=== PATIENT | male | born 1985 | race Caucasian/White ===

== ENCOUNTER 2020-11-28 12:14 | Emergency (ER) | payer BC, SELFPAY ==
--- OUTSIDE RECORDS SUMMARY | 2020-11-28 12:17 | XMS REPORT | Continuity of Care Document ---
:1985 Author Organization [facility] t Address [address] Morin [address] [place] [id number] Care Team Providers Name Role Phone Unavailable Unavailable Unavailable Problems This patient has no known problems. Allergies, Adverse Reactions, Alerts This patient has no known allergies or adverse reactions. Medications This patient has no known medications. Procedures This patient has no known procedures. Results This patient has no known results.
--- NOTE | 2020-11-28 13:33 | RAD REPORT ---
EXAM DESCRIPTION: CT - CTHCSPWOC - 11/28/2020 1:19 pm CLINICAL HISTORY: PAIN, COVID positive, recent fall with head and neck injury, headache COMPARISON: No comparisons TECHNIQUE: Axial 5 mm thick images of the head were obtained. Axial 2 mm thick images of the cervic al spine were obtained with sagittal and coronal reconstruction images generated and reviewed. All CT scans are performed using dose optimization technique as appropriate and may include automated exposure control or mA/KV adjustment according to patient size. FINDINGS: No intracranial hemorrhage, mass, edema or acute intracranial finding. No suspicion for ac [place] infarction. No extra-axial fluid collections. Mastoid air cells are clear. Mucosal thickening see n throughout the paranasal sinuses with small air-fluid level in the left maxillary sinus. Frontal si nuses are not pneumatized. No globe or orbit abnormality seen. Cervical body height and alignment are normal. Minimal disc space narrowing and posterior endplate sp urring changes are present at C5-6. No fracture or acute bony abnormality. Central canal detail is i nherently limited. No paraspinal mass or hematoma. IMPRESSION: Negative CT head examination for acute or significant finding. Patient has mucosal thickening throughout the paranasal sinuses with left maxillary sinus air-fluid l evel. Negative CT cervical spine examination for acute or significant finding. Patient does have early degenerative disc disease at C5-6.
[2020-11-28 14:11] LABS: Absolute Lymphocytes (CBC) 0.5 K/uL (0.7-4.9); Basophils % 0.2 % (0-1.3); Lymphocytes % 14.4 % (15.3-44.8); MPV 7.3 fL (7.6-11.3)
[2020-11-28 14:13] LABS: Protime INR 1.08
[2020-11-28 14:36] LABS: ALT/SGPT 29 U/L (12-78); AST/SGOT 26 U/L (15-37); Albumin 3.7 g/dL (3.4-5.0); Alkaline Phosphatase 45 U/L (45-117); BUN Blood Urea Nitrogen 11 mg/dL (7-18); Bicarbonate 30 mmol/L (21-32); Bilirubin Direct 0.2 mg/dL (0-0.2); Bilirubin Total 0.8 mg/dL (0.2-1.0); Creatine Phosphokinase 145 U/L (39-308); Glucose Level 112 mg/dL (74-106); Lipase 39 U/L (73-393); Magnesium 2.2 mg/dL (1.8-2.4); Potassium 4.3 mmol/L (3.5-5.1); Protein, Total 7.3 g/dL (6.4-8.2); Sodium Level 135 mmol/L (136-145); Troponin (Emerg Dept Use Only) < 0.02 ng/mL (0.0-0.045)
[2020-11-28 14:39] LABS: Urine Blood Negative (Negative); Urine Glucose Negative (Negative); Urine Protein 1+ (Negative); Urine Specific Gravity 1.025 (1.005-1.030)
[2020-11-28 14:40] LABS: CKMB Creatine Kinase MB < 1.0 ng/mL (1.0-3.6)
[2020-11-28] MEDS ORDERED: METOCLOPRAMIDE 10 MG/2mL INJ ONE (14:46)
[2020-11-28] MEDS ORDERED: NA CHLORIDE 0.9% 1,000 ML ONE (14:46)
[2020-11-28] MEDS ORDERED: DIPHENHYDRAMINE 50 MG/ML VIAL ONE (14:46)
[2020-11-28] MEDS ORDERED: KETOROLAC 30 MG/ML INJ ONE (14:46)
--- NOTE | 2020-11-28 15:45 | ER ---
Nurse's Notes [facility] Name: Juan Juarez Age: 35 yrs Sex: Male : 1985 Arrival Date: 11/28/2020 Time: 12:15 Bed Treatment Private MD: Diagnosis: Nausea with vomiting, unspecified;Coronavirus infection, unspecified Presentation: 11/28 12:56 Chief complaint: Patient states: Positive covid Friday. [place] dizzy yesterday, fell ll1 and hit head on shower wall. SCALES, near syncope feeling, N/V since fall. Coronavirus screen: Vaccine status: Patient reports receiving the 1st dose of the Covid vaccine. Client denies travel out of the [place] in the last 14 days. congestion, cough unrelated to allergies. Ebola Screen: Patient denies travel to an Ebola-affected area in the 21 days before illness onset. Initial Sepsis Screen: Does the patient meet any 2 criteria? No. Patient's initial sepsis screen is negative. Does the patient have a suspected source of infection? Yes: Productive cough/pneumonia Other: head injury. Risk Assessment: Do you want to hurt yourself or someone else? Patient reports no desire to harm self or others. Onset of symptoms was November 22, 2020. 12:56 Method Of Arrival: Wheelchair ll1 12:56 Acuity: RAF 2 ll1 Historical: - Allergies: 12:59 topical skin med; ll1 - PMHx: 12:59 None; ll1 - PSHx: 12:59 None; ll1 - Immunization history:: Client reports receiving the 1st dose of the Covid vaccine. - Social history:: Smoking status: Patient denies any tobacco usage or history of. Screenin:44 Abuse screen: Denies threats or abuse. Nutritional screening: No deficits noted. vg1 Tuberculosis screening: No symptoms or risk factors identified. Fall Risk Fall in past 12 months (25 points). No secondary diagnosis (0 pts). IV access (20 points). Ambulatory Aid- None/Bed Rest/Nurse Assist (0 pts). Gait- Normal/Bed Rest/Wheelchair (0 pts) Mental Status- Oriented to own ability (0 pts). Total Chao Fall Scale indicates High Risk Score (45 or more points). Fall prevention measures have been instituted. Side Rails Up X 2 Placed Close to Nursing Station. Assessment: 13:05 General: Appears in no apparent distress. comfortable, Behavior is calm, cooperative. vg1 Pain: Complains of pain in body Quality of pain is described as aching. Neuro: Level of Consciousness is awake, alert, obeys commands, Oriented to person, place, time, situation, Reports dizziness, headache a syncopal episode that occurred yesterday and states hit head on bathroom tub. Cardiovascular: Patient's skin is warm and dry. Respiratory: Reports cough that is dry, Airway is patent Respiratory effort is even, unlabored, Breath sounds are clear bilaterally. GI: Abdomen is round non-distended, Reports nausea, vomiting. : No signs and/or symptoms were reported regarding the genitourinary system. EENT: No signs and/or symptoms were reported regarding the EENT system. Derm: Skin is intact, is healthy with good turgor. Musculoskeletal: Circulation, motion, and sensation intact. 14:48 Reassessment: Patient appears in no apparent distress at this time. Patient and/or vg1 family updated on plan of care and expected duration. Pain level reassessed. Pt resting with eyes closed. 15:36 Reassessment: Patient appears in no apparent distress at this time. Patient and/or vg1 family updated on plan of care and expected duration. Pain level reassessed. Patient is alert, oriented x 3, equal unlabored respirations, skin warm/dry/pink. Patient denies pain at this time. Patient states feeling better. 16:21 Reassessment: Patient appears in no apparent distress at this time. Patient and/or vg1 family updated on plan of care and expected duration. Pain level reassessed. Patient is alert, oriented x 3, equal unlabored respirations, skin warm/dry/pink. Patient denies pain at this time. Patient states feeling better. Vital Signs: 12:56 BP 106 / 63; Pulse 66; Resp 18; Temp 97.8; Pulse Ox 96% ; Weight 124.74 kg; Height 6 ll1 ft. 2 in. (187.96 cm); Pain 10/10; 13:30 BP 113 / 63; Pulse 58; Resp 16; Pulse Ox 97% ; vg1 13:48 BP 110 / 63 Supine; Pulse 57; vg1 13:50 BP 110 / 64 Sitting; Pulse 64; vg1 13:52 BP 111 / 72 Standing; Pulse 80; vg1 14:49 BP 103 / 60 Supine; Pulse 57; Resp 16; Pulse Ox 95% on R/A; vg1 15:36 BP 101 / 64 Supine; Pulse 58; Resp 16; Pulse Ox 97% on R/A; vg1 12:56 Body Mass Index 35.31 (124.74 kg, 187.96 cm) ll1 ED Course: 12:15 Patient arrived in ED. ds1 12:59 Triage completed. ll1 12:59 Arm band placed on. ll1 13:04 [facility] kb 13:04 Eric Berry MD is Attending Physician. kb 13:04 Lilia Paredes, NATANAEL is Primary Nurse. vg1 13:20 CT Head C Spine In Process Unspecified. EDMS 13:43 Initial lab(s) drawn, by me, sent to lab. Inserted saline lock: 20 gauge in left vg1 antecubital area, using aseptic technique. Blood collected. 13:44 Patient has correct armband on for positive identification. Bed in low position. Call vg1 light in reach. Side rails up X2. 16:21 No provider procedures requiring assistance completed. IV discontinued, intact, vg1 bleeding controlled, No redness/swelling at site. Pressure dressing applied. Administered Medications: 14:20 Drug: NS 0.9% 1000 ml Route: IV; Rate: 1000 ml; Site: left antecubital; vg1 15:35 Follow up: IV Status: Completed infusion; IV Intake: 1000ml vg1 14:21 Drug: Ketorolac 15 mg Route: IVP; Site: left antecubital; vg1 15:35 Follow up: Response: No adverse reaction; Marked relief of symptoms vg1 14:23 Drug: Benadryl (diphenhydrAMINE) 12.5 mg Route: IVP; Site: left antecubital; vg1 15:35 Follow up: Response: No adverse reaction; Marked relief of symptoms vg1 14:28 Drug: Reglan (metoCLOPramide) 10 mg Route: IVP; Site: left antecubital; vg1 15:35 Follow up: Response: No adverse reaction; Marked relief of symptoms vg1 Intake: 15:35 IV: 1000ml; Total: 1000ml. vg1 Outcome: 15:44 Discharge ordered by . kb 16:21 Discharged to home ambulatory. vg1 16:21 Condition: stable 16:21 Discharge instructions given to patient, Instructed on discharge instructions, follow up and referral plans. medication usage, Demonstrated understanding of instructions, follow-up care, medications, Prescriptions given X 1. 16:21 Patient left the ED. vg1 Signatures: Dispatcher [employer] EDMS Isis Rodgers, RICHMOND-C TELEMARKETER-Jesica Garvey ds1 Lilia Paredes RN RN vg1 Rony Murillo RN RN ll1
--- NOTE | 2020-11-28 15:45 | EDPHYS ---
Physician Documentation [facility] Name: Juan Juarez Age: 35 yrs Sex: Male : 1985 Arrival Date: 11/28/2020 Time: 12:15 Bed Treatment Private MD: ED Physician Eric Berry HPI: 11/28 15:23 This 35 yrs old Male presents to ER via Wheelchair with complaints of kb Nausea/Vomiting - Covid +, Dizziness. 15:23 The patient presents to the emergency department with nausea, vomiting. Onset: The kb symptoms/episode began/occurred today. Possible causes: covid. The symptoms are aggravated by nothing. The symptoms are alleviated by nothing. Associated signs and symptoms: Pertinent positives: nausea, vomiting. Severity of symptoms: At their worst the symptoms were moderate in the emergency department the symptoms are unchanged. The patient has not experienced similar symptoms in the past. The patient has not recently seen a physician. Pt reports he was diagnosed with covid on Friday. States he started feeling better and was moving around more over the weekend. Yesterday he was in the shower and got lightheaded, fell forward and hit his head on the shower wall. Did not fall completely, denies loc. States he had a slight headache afterwards. Today he started having nausea, vomiting, dizziness and headache. . Historical: - Allergies: 12:59 topical skin med; ll1 - PMHx: 12:59 None; ll1 - PSHx: 12:59 None; ll1 - Immunization history:: Client reports receiving the 1st dose of the Covid vaccine. - Social history:: Smoking status: Patient denies any tobacco usage or history of. ROS: 15:22 Constitutional: Negative for fever, chills, and weight loss. kb 15:22 Abdomen/GI: Positive for nausea and vomiting, Negative for abdominal pain. 15:22 Neuro: Positive for dizziness, headache, near syncope. 15:22 All other systems are negative. Exam: 15:21 Constitutional: This is a well developed, well nourished patient who is awake, alert, kb and in no acute distress. Head/Face: Normocephalic, atraumatic. ENT: Moist Mucous membranes Cardiovascular: Regular rate and rhythm with a normal S1 and S2. No gallops, murmurs, or rubs. No pulse deficits. Respiratory: Respirations even and unlabored. No increased work of breathing, no retractions or nasal flaring. Skin: Warm, dry with normal turgor. Normal color. MS/ Extremity: Pulses equal, no cyanosis. Neurovascular intact. Full, normal range of motion. Neuro: Awake and alert, GCS 15, oriented to person, place, time, and situation. Moves all extremities. Normal gait. Psych: Awake, alert, with orientation to person, place and time. Behavior, mood, and affect are within normal limits. 15:21 ECG was reviewed by the Attending Physician. Vital Signs: 12:56 BP 106 / 63; Pulse 66; Resp 18; Temp 97.8; Pulse Ox 96% ; Weight 124.74 kg; Height 6 ll1 ft. 2 in. (187.96 cm); Pain 10/10; 13:30 BP 113 / 63; Pulse 58; Resp 16; Pulse Ox 97% ; vg1 13:48 BP 110 / 63 Supine; Pulse 57; vg1 13:50 BP 110 / 64 Sitting; Pulse 64; vg1 13:52 BP 111 / 72 Standing; Pulse 80; vg1 14:49 BP 103 / 60 Supine; Pulse 57; Resp 16; Pulse Ox 95% on R/A; vg1 15:36 BP 101 / 64 Supine; Pulse 58; Resp 16; Pulse Ox 97% on R/A; vg1 12:56 Body Mass Index 35.31 (124.74 kg, 187.96 cm) ll1 MDM: 13:04 Patient medically screened. kb 15:21 Data reviewed: vital signs, nurses notes. Data interpreted: Pulse oximetry: on room air kb is 95 %. Interpretation: normal. Counseling: I had a detailed discussion with the patient and/or guardian regarding: the historical points, exam findings, and any diagnostic results supporting the discharge/admit diagnosis, lab results, radiology results, the need for outpatient follow up, a family practitioner, to return to the emergency department if symptoms worsen or persist or if there are any questions or concerns that arise at home. Response to treatment: the patient's symptoms have markedly improved after treatment. 11/28 13:09 Order name: Basic Metabolic Panel; Complete Time: 14:43 kb 11/28 13:09 Order name: CBC with Diff; Complete Time: 14:14 kb 11/28 13:09 Order name: CPK; Complete Time: 14:43 kb 11/28 13:09 Order name: Ckmb; Complete Time: 14:43 kb 11/28 13:09 Order name: Hepatic Function; Complete Time: 14:43 kb 11/28 13:09 Order name: Lipase; Complete Time: 14:43 kb 11/28 13:04 Order name: CT Head C Spine; Complete Time: 13:43 kb 11/28 13:09 Order name: Magnesium; Complete Time: 14:43 kb 11/28 13:09 Order name: Protime (+inr); Complete Time: 14:14 kb 11/28 13:09 Order name: Ptt, Activated; Complete Time: 14:14 kb 11/28 13:09 Order name: Troponin (emerg Dept Use Only); Complete Time: 14:43 kb 11/28 14:39 Order name: Urine Dipstick-Ancillary; Complete Time: 14:43 EDMS 11/28 13:09 Order name: EKG; Complete Time: 13:10 kb 11/28 13:09 Order name: Cardiac monitoring; Complete Time: 13:41 kb 11/28 13:09 Order name: EKG - Nurse/Tech; Complete Time: 13:41 kb 11/28 13:09 Order name: IV Saline Lock; Complete Time: 13:41 kb 11/28 13:09 Order name: Labs collected and sent; Complete Time: 13:41 kb 11/28 13:09 Order name: NPO; Complete Time: 13:14 kb 11/28 13:09 Order name: O2 Per Protocol; Complete Time: 13:14 kb 11/28 13:09 Order name: O2 Sat Monitoring; Complete Time: 13:14 kb 11/28 13:09 Order name: Urine Dipstick-Ancillary (obtain specimen); Complete Time: 14:48 kb 11/28 13:09 Order name: Orthostatics; Complete Time: 13:55 kb 11/28 15:20 Order name: Misc. Order: ambulate pt; Complete Time: 16:21 kb EC:21 Rate is 57 beats/min. Rhythm is regular. QRS [place] is Normal. HI interval is normal at kb 172 msec. QRS interval is normal at 88 msec. QT interval is normal at 434 msec. Administered Medications: 14:20 Drug: NS 0.9% 1000 ml Route: IV; Rate: 1000 ml; Site: left antecubital; vg1 15:35 Follow up: IV Status: Completed infusion; IV Intake: 1000ml vg1 14:21 Drug: Ketorolac 15 mg Route: IVP; Site: left antecubital; vg1 15:35 Follow up: Response: No adverse reaction; Marked relief of symptoms vg1 14:23 Drug: Benadryl (diphenhydrAMINE) 12.5 mg Route: IVP; Site: left antecubital; vg1 15:35 Follow up: Response: No adverse reaction; Marked relief of symptoms vg1 14:28 Drug: Reglan (metoCLOPramide) 10 mg Route: IVP; Site: left antecubital; vg1 15:35 Follow up: Response: No adverse reaction; Marked relief of symptoms vg1 Disposition: 11/29 08:14 Co-signature as Attending Physician, Eric Berry MD I agree with the assessment and courtney plan of care. Disposition Summary: 11/28/20 15:44 Discharge Ordered Location: Home kb Condition: Stable kb Diagnosis - Nausea with vomiting, unspecified kb - Coronavirus infection, unspecified kb Followup: kb - With: Emergency Department - When: As needed - Reason: Worsening of condition Followup: kb - With: Private Physician - When: 2 - 3 days - Reason: Recheck today's complaints, Continuance of care, Re-evaluation by your physician Discharge Instructions: - Discharge Summary Sheet kb - Nausea and Vomiting, Adult, [id number] kb - COVID-19 kb - COVID-19 Frequently Asked Questions kb - 10 Things You Can Do to Manage Your COVID-19 Symptoms at Home - [facility] kb Forms: - Medication Reconciliation Form kb - Thank You Letter kb - Antibiotic Education kb - Prescription Opioid Use kb Prescriptions: - Zofran 4 mg Oral Tablet - take 1 tablet by ORAL route every 6 hours As needed; 20 tablet; Refills: 0, kb Product Selection Permitted Signatures: Dispatcher [employer] Isis Merino, RICHMOND-Miguel FRAGOSO-Eric Bravo MD MD cha Garcia, Victoria, RN RN vg1 Rony Murillo RN RN ll1
[2020-11-28 16:34] VITALS: TEMP 97.8
[2020-11-28 16:42] VITALS: BP 101/64; O2SAT 97
--- NOTE | 2020-11-29 11:29 | EKG ---
Test Date: 2020-11-28 Test Time: 13:31:06 Mattress Stuffer: MIR MEASUREMENT RESULTS: Intervals: Rate: 57 CA: 172 QRSD: 88 QT: 434 QTc: 422 [place]: P: 62 CA: 172 QRS: 61 T: 37 INTERPRETIVE STATEMENTS: Sinus bradycardia Otherwise normal ECG Compared to ECG 07/21/2012 17:34:32 Sinus tachycardia no longer present Electronically Signed On 11-29-20 11:26:51 CDT by Abner Servin
== END 2020-11-28 16:21 | disposition home or self-care (01) ==
LOC: ER 12:14
DX: U07.1 COVID-19 (principal)
CPT/HCPCS: 96361; 93005; 85025; 80048; 36415; 83735; 82550; 85610; 80076; 85730; 81003; 84484; 82553; 83690; 70450; 72125; 96375; 96374; 99284; J2765; J1200; J7030

== ENCOUNTER 2020-11-30 07:21 | Emergency (ER) | payer BC ==
--- OUTSIDE RECORDS SUMMARY | 2020-11-30 07:23 | XMS REPORT | Continuity of Care Document ---
:1985 Author Organization [facility] t Address [address] [place] [address] Dr. Morin [address] [place] [id number] Care Team Providers Name Role Phone Unavailable Unavailable Unavailable Problems This patient has no known problems. Allergies, Adverse Reactions, Alerts This patient has no known allergies or adverse reactions. Medications This patient has no known medications. Procedures This patient has no known procedures. Results This patient has no known results.
[2020-11-30 08:04] LABS: Absolute Lymphocytes (CBC) 0.3 K/uL (0.7-4.9); Basophils % 0.3 % (0-1.3); Hematocrit 40.5 % (39.6-49.0); Lymphocytes % 4.9 % (15.3-44.8); MPV 7.4 fL (7.6-11.3); RBC Red Blood Cell Count 4.72 M/uL (4.33-5.43)
[2020-11-30 08:21] LABS: BUN Blood Urea Nitrogen 7 mg/dL (7-18); Bicarbonate 25 mmol/L (21-32); Ferritin 475.3 ng/mL (26-388); Glucose Level 134 mg/dL (74-106); Potassium 3.9 mmol/L (3.5-5.1); Sodium Level 131 mmol/L (136-145)
[2020-11-30] MEDS ORDERED: NA CHLORIDE 0.9% 1,000 ML ONE (08:31)
[2020-11-30] MEDS ORDERED: ONDANSETRON 4 MG/2 ML VIAL ONE (08:31)
--- NOTE | 2020-11-30 08:40 | RAD REPORT ---
EXAM DESCRIPTION: RAD - Chest Single View - 11/30/2020 8:20 am CLINICAL HISTORY: Cough;Dyspnea, history of COVID exposure COMPARISON: June 2012 TECHNIQUE: AP portable chest image was obtained 11/30/2020 8:20 am . FINDINGS: Lung volumes are very low. Bilateral airspace opacification is present. Given the provided history, bilateral COVID-19 pneumonia would be the primary consideration. Trachea is midline. Heart and vasculature are normal. No measurable pleural effusion and no pneumothorax. No acute bony abnormality seen. No acute aortic findings suspected. IMPRESSION: Bilateral pneumonia pattern. Given the provided history, COVID-19 pneumonia would be the primary consideration.
[2020-11-30 09:24] LABS: Blood Morphology Comment NOT SEEN (NOT SEEN); Platelet Estimate ADEQ
[2020-11-30 09:30] LABS: Albumin 3.5 g/dL (3.4-5.0); Bilirubin Direct 0.3 mg/dL (0-0.2); Bilirubin Total 0.8 mg/dL (0.2-1.0); Protein, Total 7.4 g/dL (6.4-8.2)
--- NOTE | 2020-11-30 09:43 | RAD REPORT ---
EXAM DESCRIPTION: CT - Chest For Pe Angio - 11/30/2020 9:18 am CLINICAL HISTORY: DYSPNEA, shortness of breath, positive COVID COMPARISON: CTANGIO CHEST FOR PE dated 07/21/2012 TECHNIQUE: Dynamically enhanced 3 mm thick images of the chest were obtained during administration o f approximately 150mL Isovue 370 IV contrast. Coronal and oblique MIP reconstruction images were gene rated and reviewed. Exam utilizes a protocol to evaluate the pulmonary arterial tree. All CT scans are performed using dose optimization technique as appropriate and may include automated exposure control or mA/KV adjustment according to patient size. FINDINGS: Pulmonary artery contrast density is not optimal but is sufficient for evaluation of pulmo nary embolic disease. There are no pulmonary emboli identifiable. The aorta as imaged shows no acute or suspicious finding. No pericardial thickening or effusion. Patient has moderately extensive bilateral airspace consolidation and ground-glass opacification. No mass or cavitation identified. This is a very commonly described COVID-19 pneumonia pattern. No pleur al effusion or pleural thickening. No mediastinal or hilar suspicious masses. No chest wall masses or abnormal axillary lymphadenopathy. IMPRESSION: No pulmonary emboli identified. Moderate severity bilateral COVID-19 pneumonia pattern.
--- NOTE | 2020-11-30 09:44 | RAD REPORT ---
EXAM DESCRIPTION: CT - Abdomen Pelvis W Contrast - 11/30/2020 9:18 am CLINICAL HISTORY: ABD PAIN COMPARISON: CT ABD PELVIS W CONTRAST dated 07/21/2012 TECHNIQUE: Biphasic, helical CT imaging of the abdomen and pelvis was performed following 100 ml non -ionic IV contrast. No oral contrast administered. All CT scans are performed using dose optimization technique as appropriate and may include automated exposure control or mA/KV adjustment according to patient size. FINDINGS: Lung findings are detailed in separate CT PE study. The liver, spleen, and pancreas show no suspicious findings. Gallbladder and biliary tree are also wi thout suspicious finding. Symmetric renal function is seen with no hydronephrosis or suspicious renal mass. No pyelonephritis o r acute parenchymal process. No bladder abnormalities. No adrenal abnormalities. No dilated bowel loops or bowel wall thickening. Appendix is normal. No free air, free fluid or infla mmatory stranding. No hernia, mass or bulky lymphadenopathy. No suspicious bony findings. IMPRESSION: Contrast enhanced CT abdomen and pelvis showing no acute or emergent finding.
--- NOTE | 2020-11-30 11:46 | EDPHYS ---
Physician Documentation [facility] Name: Juan Juarez Age: 35 yrs Sex: Male : 1985 Arrival Date: 11/30/2020 Time: 07:21 Bed 15 Private MD: Nas Young S ED Physician Marques Davalos HPI: 11/30 08:25 This 35 yrs old Male presents to ER via Ambulatory with complaints of kb Breathing Difficulty, Cough. 08:25 The patient or guardian reports cough, that is intermittent, described as moderate, kb difficulty breathing. Onset: The symptoms/episode began/occurred 8 day(s) ago. Severity of symptoms: At their worst the symptoms were moderate, in the emergency department the symptoms are unchanged. Modifying factors: The symptoms are alleviated by nothing, the symptoms are aggravated by nothing. Associated signs and symptoms: Pertinent positives: diarrhea, nausea, vomiting. The patient has not experienced similar symptoms in the past. The patient has not recently seen a physician. Pt reports cough, shortness of breath, malaise, n/v/d. States it started a week ago and tested positive for COVID then. This morning had a coughing fit that caused shortness of breath, then he panicked which made shortness of breath worse. States he doesn't feel like he can take a full breath. Historical: - Allergies: 07:27 No Known Allergies; tw2 - Home Meds: 07:27 None [Active]; tw2 - PMHx: 07:27 None; tw2 - PSHx: 07:27 None; tw2 - Immunization history:: Adult Immunizations. - Social history:: Smoking status: . ROS: 08:23 Cardiovascular: Negative for chest pain, palpitations, and edema. kb 08:23 Constitutional: Positive for body aches, chills, fatigue, fever, malaise. 08:23 ENT: Positive for rhinorrhea, sinus congestion. 08:23 Respiratory: Positive for cough, shortness of breath, Negative for dyspnea on exertion, hemoptysis, orthopnea, pleurisy, sputum production, wheezing. 08:23 Abdomen/GI: Positive for nausea, vomiting, and diarrhea, Negative for abdominal pain. 08:23 All other systems are negative. Exam: 08:23 Constitutional: This is a well developed, well nourished patient who is awake, alert, kb and in no acute distress. Head/Face: Normocephalic, atraumatic. ENT: Moist Mucous membranes Cardiovascular: Regular rate and rhythm with a normal S1 and S2. No gallops, murmurs, or rubs. No pulse deficits. Skin: Warm, dry with normal turgor. Normal color. MS/ Extremity: Pulses equal, no cyanosis. Neurovascular intact. Full, normal range of motion. Neuro: Awake and alert, GCS 15, oriented to person, place, time, and situation. Moves all extremities. Normal gait. Psych: Awake, alert, with orientation to person, place and time. Behavior, mood, and affect are within normal limits. 08:23 Respiratory: the patient does not display signs of respiratory distress, Respirations: labored breathing, that is mild, Breath sounds: are clear throughout. 08:45 Abdomen/GI: Inspection: abdomen appears normal, Bowel sounds: normal, in all quadrants, kb Palpation: soft, in all quadrants, moderate abdominal tenderness, in the right upper quadrant and left upper quadrant. Vital Signs: 07:25 BP 142 / 69; Pulse 81; Resp 20; Temp 97.9; Pulse Ox 93% on R/A; tw2 08:56 BP 130 / 76; Pulse 83; Resp 22; Temp 97.3; Pulse Ox 100% ; aj2 11:11 BP 118 / 65; Pulse 82; Resp 20; Temp 97.1; Pulse Ox 96% on R/A; aj2 07:25 provider RICHMOND Anders in triage room with assessment at this time. tw2 MDM: 07:22 Patient medically screened. kb 08:24 Data reviewed: vital signs, nurses notes. Data interpreted: Pulse oximetry: on room air kb is 93 %. Interpretation: normal. 11:18 ED course: O2 sat 95% at rest, 91% at the lowest with ambulation. . kb 11:45 Counseling: I had a detailed discussion with the patient and/or guardian regarding: the kb historical points, exam findings, and any diagnostic results supporting the discharge/admit diagnosis, lab results, radiology results, the need for outpatient follow up, a family practitioner, to return to the emergency department if symptoms worsen or persist or if there are any questions or concerns that arise at home. 11/30 07:30 Order name: CBC with Diff; Complete Time: 09:25 kb 11/30 07:30 Order name: Basic Metabolic Panel; Complete Time: 08:22 kb 11/30 07:30 Order name: Ferritin; Complete Time: 08:22 kb 11/30 07:30 Order name: CRP; Complete Time: 08:22 kb 11/30 08:37 Order name: Lipase; Complete Time: 09:44 kb 11/30 08:37 Order name: Hepatic Function; Complete Time: 09:44 kb 11/30 07:30 Order name: IV Start; Complete Time: 07:57 kb 11/30 07:30 Order name: Chest Single View XRAY; Complete Time: 08:42 kb 11/30 08:28 Order name: CT Chest For PE Angio; Complete Time: 09:44 kb 11/30 08:37 Order name: CT Abd/Pelvis - IV Contrast Only; Complete Time: 09:45 kb 11/30 09:24 Order name: Manual Differential; Complete Time: 09:25 EDMS 11/30 09:51 Order name: Misc. Order: ambulate pt and check sat; Complete Time: 11:03 kb 11/30 11:18 Order name: PO challenge; Complete Time: 11:37 kb Administered Medications: 08:14 Drug: NS 0.9% 1000 ml Route: IV; Rate: 1000 ml; Site: right wrist; aj2 08:14 Drug: Zofran (Ondansetron) 4 mg Route: IVP; Site: right wrist; aj2 08:39 Drug: SOLU-Medrol (methylPrednisoLONE) 125 mg Route: IVP; Site: right wrist; aj2 Disposition Summary: 11/30/20 11:45 Discharge Ordered Location: Home kb Condition: Stable kb Diagnosis - Pneumonia due to SARS-associated coronavirus kb - Coronavirus infection, unspecified kb Followup: kb - With: Emergency Department - When: As needed - Reason: Worsening of condition Followup: kb - With: Private Physician - When: 2 - 3 days - Reason: Recheck today's complaints, Continuance of care, Re-evaluation by your physician Discharge Instructions: - Discharge Summary Sheet kb - COVID-19 kb - COVID-19 Frequently Asked Questions kb - 10 Things You Can Do to Manage Your COVID-19 Symptoms at Home - [facility] kb Forms: - Medication Reconciliation Form kb - Thank You Letter kb - Antibiotic Education kb - Prescription Opioid Use kb Prescriptions: - Prednisone 20 mg Oral Tablet - take 1 tablet by ORAL route once daily for 5 days; 5 tablet; Refills: 0, kb Product Selection Permitted - Zithromax 500 mg Oral Tablet - take 1 tablet by ORAL route once daily for 5 days; 5 tablet; Refills: 0, kb Product Selection Permitted Addendum: 12/02/2020 07:15 Co-signature as Attending Physician, Marques Davalos MD. r n Signatures: Dispatcher [employer] EDAR Isis Rodgers, RICHMOND-C CREATIVE INTERN-Marques Victoria MD MD rn Merlene Cabrera RN RN tw2 Nicolette Cano aj2 Corrections: (The following items were deleted from the chart) 11/30 07:27 07:27 Allergies: topical skin med; tw2 08:45 08:23 Constitutional: This is a well developed, well nourished patient who is awake, kb alert, and in no acute distress. Head/Face: Normocephalic, atraumatic. ENT: Moist Mucous membranes Cardiovascular: Regular rate and rhythm with a normal S1 and S2. No gallops, murmurs, or rubs. No pulse deficits. Abdomen/GI: Soft, non-tender. No distention Skin: Warm, dry with normal turgor. Normal color. MS/ Extremity: Pulses equal, no cyanosis. Neurovascular intact. Full, normal range of motion. Neuro: Awake and alert, GCS 15, oriented to person, place, time, and situation. Moves all extremities. Normal gait. Psych: Awake, alert, with orientation to person, place and time. Behavior, mood, and affect are within normal limits. kb
--- NOTE | 2020-11-30 11:46 | ER ---
Nurse's Notes [facility] Name: Juan Juarez Age: 35 yrs Sex: Male : 1985 Arrival Date: 11/30/2020 Time: 07:21 Bed 15 Private MD: Nas Young S Diagnosis: Pneumonia due to SARS-associated coronavirus;Coronavirus infection, unspecified Presentation: 11/30 07:25 Chief complaint: Patient states: feels like my lungs were on fire Spouse and/or tw2 significant other states: cant catch is breath, we were here yesterday and was ok for a little bit. i guess it was late last night. Chief complaint: Spouse and/or significant other states: tested POSITIVE last Friday. Coronavirus screen: cough unrelated to allergies, difficulty breathing, nausea, vomiting. Client presents with at least one sign or symptom that may indicate coronavirus-19. Standard/surgical mask placed on the client. Provider contacted for isolation considerations. Ebola Screen: Patient denies travel to an Ebola-affected area in the 21 days before illness onset. Initial Sepsis Screen: Does the patient meet any 2 criteria? No. Patient's initial sepsis screen is negative. Does the patient have a suspected source of infection? No. Patient's initial sepsis screen is negative. Risk Assessment: Do you want to hurt yourself or someone else? Patient reports no desire to harm self or others. Onset of symptoms was November 30, 2020. 07:25 Method Of Arrival: Ambulatory tw2 07:25 Acuity: RAF 3 tw2 Triage Assessment: 07:27 General: Appears distressed, Behavior is restless, uncooperative. Pain: Complains of tw2 pain in chest. Respiratory: Reports shortness of breath at rest labored breathing pain with respiration Onset: The symptoms/episode began/occurred since last Friday, the patient has moderate shortness of breath. Historical: - Allergies: 07:27 No Known Allergies; tw2 - Home Meds: 07:27 None [Active]; tw2 - PMHx: 07:27 None; tw2 - PSHx: 07:27 None; tw2 - Immunization history:: Adult Immunizations. - Social history:: Smoking status: . Screenin:56 Abuse screen: Denies threats or abuse. Denies injuries from another. Nutritional aj2 screening: No deficits noted. Tuberculosis screening: No symptoms or risk factors identified. Never had TB. Fall Risk None identified. Assessment: 08:56 Respiratory: aj2 11:08 Reassessment: Sp02 91% when patient ambulates.. aj2 11:43 Reassessment: PO challenge complete, no N/V/D or distress noted.. aj2 Vital Signs: 07:25 BP 142 / 69; Pulse 81; Resp 20; Temp 97.9; Pulse Ox 93% on R/A; tw2 08:56 BP 130 / 76; Pulse 83; Resp 22; Temp 97.3; Pulse Ox 100% ; aj2 11:11 BP 118 / 65; Pulse 82; Resp 20; Temp 97.1; Pulse Ox 96% on R/A; aj2 07:25 provider RICHMOND Anders in triage room with assessment at this time. tw2 ED Course: 07:21 Patient arrived in ED. am2 07:22 Nas Young MD is Private Physician. am2 07:22 [facility] kb 07:22 Marques Davalos MD is Attending Physician. kb 07:27 Triage completed. tw2 07:27 Arm band placed on. tw2 07:53 Initial lab(s) drawn, by me, sent to lab. Inserted saline lock: 20 gauge in right dh3 forearm, using aseptic technique. Blood collected. 08:03 Nicolette Cano is Primary Nurse. aj2 08:18 Chest Single View XRAY In Process Unspecified. EDMS 08:56 Patient has correct armband on for positive identification. aj2 08:56 No provider procedures requiring assistance completed. IV is patent, is intact. aj2 09:17 CT Abd/Pelvis - IV Contrast Only In Process Unspecified. EDMS 09:18 CT Chest For PE Angio In Process Unspecified. EDMS 12:00 IV discontinued. aj2 Administered Medications: 08:14 Drug: NS 0.9% 1000 ml Route: IV; Rate: 1000 ml; Site: right wrist; aj2 08:14 Drug: Zofran (Ondansetron) 4 mg Route: IVP; Site: right wrist; aj2 08:39 Drug: SOLU-Medrol (methylPrednisoLONE) 125 mg Route: IVP; Site: right wrist; aj2 Outcome: 11:45 Discharge ordered by MD. villanueva 12:00 Discharged to home ambulatory. aj2 12:00 Condition: stable 12:00 Discharge instructions given to patient, Instructed on discharge instructions, follow up and referral plans. Demonstrated understanding of instructions, follow-up care, medications, Prescriptions given X 2. 12:14 Patient left the ED. aj2 Signatures: Dispatcher [employer] EDIsis Avina, RICHMOND-C FISHING REEL ASSEMBLER-Merlene Solorzano RN RN tw2 Jessica Diaz Deanna 3 Nicolette Cano aj2 Corrections: (The following items were deleted from the chart) 07:27 07:27 Allergies: topical skin med; tw2 tw2
[2020-11-30 12:29] VITALS: BP 118/65; TEMP 97.1; O2SAT 96
== END 2020-11-30 12:14 | disposition home or self-care (01) ==
LOC: ER 07:21
DX: U07.1 COVID-19 (principal); J12.82 Pneumonia due to coronavirus disease 2019
CPT/HCPCS: 85025; 80048; 36415; 80076; 82728; 83690; 86140; 71275; 74177; 71045; 96375; 96374; 99284; Q9967; J7030; J2405

== ENCOUNTER → 2023-06-08 | Emergency (ER) | payer OTHER ==
[~2023-06-08] MED LIST: NA CHLORIDE 0.9% 1,000 ML ONE
[2023-06-08 06:45] LABS: Absolute Eosinophils 0.2 K/uL (0-0.5); Absolute Monocytes 0.6 K/uL (0.1-1.3); Absolute Neutrophil 2.7 K/uL (1.8-8.0); Basophils % 0.4 % (0-1.3); Eosinophils % 3.2 % (0-4.4); Hematocrit 40.2 % (39.6-49.0); Hemoglobin 13.9 g/dL (13.6-17.9); Lymphocytes % 36.2 % (15.3-44.8); MCH 30.4 pg (27.0-35.0); MCHC 34.6 g/dL (32.0-36.0); MCV 87.9 fL (80-100); MPV 7.4 fL (7.6-11.3); Neutrophils % 50.2 % (41.7-73.7); Nucleated Red Blood Cells % 0.2 % (0-0); Platelets 231 thou/uL (152-406); RBC Red Blood Cell Count 4.57 M/uL (4.33-5.43); Red Cell Distribution Width 13.7 % (12.1-15.2)
[2023-06-08 06:47] LABS: PT Prothrombin Time 11.1 SECONDS (9.5-12.5); Protime INR 1.01
[2023-06-08 07:09] LABS: ALT/SGPT 46 U/L (16-61); AST/SGOT 23 U/L (15-37); Albumin 3.9 g/dL (3.4-5.0); Albumin/Globulin Ratio 1.3 (1.1-1.8); Alkaline Phosphatase 45 U/L (45-117); Anion Gap 7.6 mEq/L (5.0-15.0); BUN Blood Urea Nitrogen 10 mg/dL (7-18); Bicarbonate 28 mEq/L (21-32); Bilirubin Direct 0.2 mg/dL (0-0.2); Bilirubin Indirect, Calculated 0.9 mg/dL (0.2-0.8); Bilirubin Total 1.1 mg/dL (0.2-1.0); Globulin 2.9 g/dL (2.3-3.5); Glomerular Filtration Rate 98 ml/min (=/>90); Glucose Level 109 mg/dL (74-106); NT PRO-BNP 26 pg/mL (<125); Potassium 3.6 mEq/L (3.5-5.1); Protein, Total 6.8 g/dL (6.4-8.2); Sodium Level 142 mEq/L (136-145); Troponin High Sensitivity 6.4 pg/mL (<58.9)
[2023-06-08 07:11] LABS: C-Reactive Protein < 2.90 mg/L (<3.00)
--- NOTE | 2023-06-08 07:32 | ER ---
Nurse's Notes [facility] Name: Juan Juarez Age: 37 yrs Sex: Male : 1985 Arrival Date: 06/08/2023 Time: 06:06 Bed 17 Private MD: Renetta Street Diagnosis: Shortness of breath Presentation: 06/07 06:23 Chief complaint: Patient states: sudden onset of palpitations, sob, and heaviness of rv the left arm. denies alcohol/drugs use. Coronavirus screen: At this time, the client does not indicate any symptoms associated with coronavirus-19. Ebola Screen: No symptoms or risks identified at this time. Initial Sepsis Screen: Does the patient meet any 2 criteria? No. Patient's initial sepsis screen is negative. Does the patient have a suspected source of infection? No. Patient's initial sepsis screen is negative. Risk Assessment: Do you want to hurt yourself or someone else? Patient reports no desire to harm self or others. Onset of symptoms was June 08, 2023. 06:23 Method Of Arrival: Ambulatory rv 06:23 Acuity: RAF 2 rv Triage Assessment: :24 General: Appears in no apparent distress. Behavior is calm, cooperative. Pain: Denies rv pain. Neuro: Level of Consciousness is awake, alert, obeys commands, Oriented to person, place, time, situation. Cardiovascular: Capillary refill < 3 seconds Patient's skin is warm and dry. Cardiovascular: Reports palpitations, shortness of breath. Respiratory: Reports shortness of breath at rest Onset: The symptoms/episode began/occurred suddenly, the patient has mild shortness of breath. GI: : No signs and/or symptoms were reported regarding the genitourinary system. Derm: Skin is intact. Historical: - Allergies: 06:24 No Known Allergies; rv - Home Meds: 06:24 None [Active]; rv - PMHx: 06:24 None; rv - PSHx: 06:24 None; rv - Immunization history:: Adult Immunizations up to date. - Social history:: Smoking status: Patient denies any tobacco usage or history of. - Family history:: not pertinent. Screenin:25 [facility] ED Fall Risk Assessment (Adult) History of falling in the last 3 months, rv including since admission No falls in past 3 months (0 pts) Score/Fall Risk Level 0 - 2 = Low Risk Oriented to surroundings, Maintained a safe environment, Educated pt \T\ family on fall prevention, incl call for assistance when getting out of bed, Assessed \T\ reinforced patient's understanding of fall precautions. Abuse screen: Denies threats or abuse. Denies injuries from another. Nutritional screening: No deficits noted. Tuberculosis screening: No symptoms or risk factors identified. Assessment: 06:26 Respiratory: Airway is patent Respiratory effort is even, unlabored, Breath sounds are rv clear bilaterally. 07:00 Cardiovascular: Rhythm is sinus bradycardia. kc6 Vital Signs: 06:23 BP 152 / 88; Pulse 74; Resp 17; Temp 98; Pulse Ox 99% ; rv 07:10 BP 145 / 90; Pulse 53; Resp 16 S; Pulse Ox 97% on R/A; kc6 ED Course: 06:10 Patient arrived in ED. mr 06:[address] is Private Physician. mr 06:18 Garrick Middleton MD is Attending Physician. sp4 06:23 Cristobal Sethi RN is Primary Nurse. rv 06:24 Triage completed. rv 06:24 Arm band placed on right wrist. rv 06:25 Patient has correct armband on for positive identification. Client placed on continuous rv cardiac and pulse oximetry monitoring. NIBP monitoring applied. night monitor on. 06:25 No provider procedures requiring assistance completed. rv 06:40 Inserted saline lock: 20 gauge in right antecubital area, using aseptic technique. rv Blood collected. 06:42 XRAY Chest (1 view) In Process Unspecified. EDMS 07:00 Report received from NATANAEL Calderon. kc6 07:31 Yamil Sotelo DO is Referral Physician. cp3 07:40 IV discontinued, intact, bleeding controlled, No redness/swelling at site. Pressure kc6 dressing applied. Administered Medications: 06:40 Drug: NS 0.9% IV 1000 ml IV at 1 bolus Per protocol; 1000 mL bolus Route: IV; Rate: 1 rv bolus; Site: right antecubital; Medication: 06:25 VIS not applicable for this client. rv Outcome: 07:31 Discharge ordered by . cp3 07:40 Discharged to home ambulatory, with significant other, kc6 07:40 Condition: good 07:40 Discharge instructions given to patient, Instructed on discharge instructions, follow up and referral plans. Demonstrated understanding of instructions, follow-up care, 07:40 Patient left the ED. kc6 Signatures: Dispatcher [employer] Madi Rueda MD MD cp3 Emily Dwyer, [facility] Reg mr NavdeepCristobal RN Jewell Boles RN RN kc6 Garrick Middleton MD MD sp4
--- NOTE | 2023-06-08 07:32 | EDPHYS ---
Physician Documentation [facility] Name: Juan Juarez Age: 37 yrs Sex: Male : 1985 Arrival Date: 06/08/2023 Time: 06:06 Bed 17 Private MD: Renetta Street ED Physician Garrick Middleton HPI: 06/07 06:18 This 37 yrs old Male presents to ER via Unassigned with complaints of sp4 Shortness Of Breath, Arm Problem. 06:27 37-year-old male no significant past medical history presents with acute onset sp4 shortness of breath discomfort in the left arm. Darted suddenly at work couple hours ago and he has been feeling unwell ever since. Denied chest pain or palpitations. . Historical: - Allergies: 06:24 No Known Allergies; rv - Home Meds: 06:24 None [Active]; rv - PMHx: 06:24 None; rv - PSHx: 06:24 None; rv - Immunization history:: Adult Immunizations up to date. - Social history:: Smoking status: Patient denies any tobacco usage or history of. - Family history:: not pertinent. ROS: 06:27 Constitutional: Negative for fever, chills, and weight loss, positive shortness of sp4 breath and left arm discomfort 06:27 All other systems are negative, Exam: 06:27 Constitutional: This is a well developed, well nourished patient who is awake, alert, sp4 and in no acute distress. Head/Face: Normocephalic, atraumatic. Eyes: Pupils equal round and reactive to light, extra-ocular motions intact. Lids and lashes normal. Conjunctiva and sclera are not injected. Cornea within normal limits. Periorbital areas with no swelling, redness, or edema. ENT: Nares patent. No nasal discharge, no septal abnormalities noted. Tympanic membranes are normal and external auditory canals are clear. Oropharynx with no redness, swelling, or masses, exudates, or evidence of obstruction, uvula midline. Mucous membranes moist. Neck: Trachea midline, no thyromegaly or masses palpated, and no cervical lymphadenopathy. Supple, full range of motion without nuchal rigidity, or vertebral point tenderness. Chest/axilla: Normal chest wall appearance and motion. Nontender with no deformity. No lesions are appreciated. Cardiovascular: Regular rate and rhythm with a normal S1 and S2. No gallops, murmurs, or rubs. Normal PMI, no JVD. No pulse deficits. Respiratory: Lungs have equal breath sounds bilaterally, clear to auscultation and percussion. No rales, rhonchi or wheezes noted. No increased work of breathing, no retractions or nasal flaring. Abdomen/GI: Soft, with normal bowel sounds. No distension or tympany. No guarding or rebound. No evidence of tenderness throughout. Back: No spinal tenderness. No costovertebral tenderness. Skin: Warm, dry with normal turgor. Normal color with no rashes, no lesions, and no evidence of cellulitis. MS/ Extremity: Pulses equal, no cyanosis. Neurovascular intact. Full, normal range of motion. Neuro: Awake and alert, GCS 15, oriented to person, place, time, and situation. Cranial nerves II-XII grossly intact. Motor strength 5/5 in all extremities. Sensory grossly intact. Psych: Awake, alert, with orientation to person, place and time. Behavior, mood, and affect are within normal limits 07:12 ECG was reviewed by the Attending Physician. EKG at 0 618, normal sinus rhythm with a sp4 rate of 73 Vital Signs: 06:23 BP 152 / 88; Pulse 74; Resp 17; Temp 98; Pulse Ox 99% ; rv 07:10 BP 145 / 90; Pulse 53; Resp 16 S; Pulse Ox 97% on R/A; kc6 MDM: 06:21 Patient medically screened. sp4 06:28 Differential diagnosis: Anxiety Reaction asthma, Bronchitis CHF exacerbation, Chronic sp4 Obstructive Pulmonary Disease Myocardial Infarction pneumonia. Data reviewed: vital signs, nurses notes, lab test result(s), EKG, radiologic studies, plain films. 07:01 Transition of care: After a detail discussion of the patient's case, care is sp4 transferred to Madi Post MD. 07:27 Consideration of Admission/Observation Escalation of care including cp3 admission/observation considered. Transition of care: Care assumed from Garrick Middleton MD. 07:27 Counseling: I had a detailed discussion with the patient and/or guardian regarding to cp3 return to the emergency department if symptoms worsen or persist or if there are any questions or concerns that arise at home. Special discussion: I discussed with the patient/guardian in detail that at this point there is no indication for admission to the hospital. It is understood, however, that if the symptoms persist or worsen the patient needs to return immediately for re-evaluation. 06/07 06:26 Order name: Basic Metabolic Panel; Complete Time: 07:27 sp4 06/07 06:26 Order name: CBC with Diff; Complete Time: 07:27 sp4 06/07 06:26 Order name: LFT's; Complete Time: 07:27 sp4 06/07 06:26 Order name: Magnesium; Complete Time: 07:27 sp4 06/07 06:26 Order name: NT PRO-BNP; Complete Time: 07:27 sp4 06/07 06:26 Order name: PT-INR; Complete Time: 07:27 sp4 06/07 06:26 Order name: Troponin HS; Complete Time: 07:27 sp4 06/07 06:27 Order name: TSH; Complete Time: 07:27 sp4 06/07 06:27 Order name: T4 Free; Complete Time: 07:27 sp4 06/07 06:27 Order name: CRP; Complete Time: 07:27 sp4 06/07 06:26 Order name: XRAY Chest (1 view) 4 06/07 06:26 Order name: EKG; Complete Time: 06:27 sp4 06/07 06:26 Order name: Cardiac monitoring; Complete Time: 06:37 sp4 06/07 06:26 Order name: EKG - Nurse/Tech; Complete Time: 06:37 sp4 06/07 06:26 Order name: IV Saline Lock; Complete Time: 06:37 sp4 06/07 06:26 Order name: Labs collected and sent; Complete Time: 06:37 sp4 06/07 06:26 Order name: O2 Per Protocol; Complete Time: 06:37 sp4 06/07 06:26 Order name: O2 Sat Monitoring; Complete Time: 06:37 sp4 EC:12 Rate is 73 beats/min. Rhythm is regular, Normal Sinus Rhythm. QRS Plaza is Normal. SC sp4 interval is normal. QRS interval is normal. No Q waves. T waves are Normal. No ST changes noted. Clinical impression: Normal ECG. Interpreted by me. Reviewed by me. Administered Medications: 06:40 Drug: NS 0.9% IV 1000 ml IV at 1 bolus Per protocol; 1000 mL bolus Route: IV; Rate: 1 rv bolus; Site: right antecubital; Disposition Summary: 06/08/23 07:31 Discharge Ordered Notes: Location: Home cp3 Condition: Stable cp3 Diagnosis - Shortness of breath cp3 Followup: cp3 - With: Yamil Sotelo, DO - When: - Reason: Continuance of care Discharge Instructions: - Discharge Summary Sheet cp3 - Shortness of Breath, Adult cp3 Forms: - Medication Reconciliation Form cp3 - Thank You Letter cp3 - Antibiotic Education cp3 - Prescription Opioid Use cp3 - Patient Portal Instructions cp3 - Leadership Thank You Letter cp3 Signatures: Dispatcher [employer] Madi Rueda MD MD cp3 Cristobal Sethi RN RN rv Garrick Middleton MD MD sp4
[2023-06-08 07:51] VITALS: BP 145/90; TEMP 98; O2SAT 97
--- NOTE | 2023-06-09 10:12 | RAD REPORT ---
EXAM DESCRIPTION: RAD - Chest Single View - 06/08/2023 6:40 am CLINICAL HISTORY: DYSPNEA COMPARISON: None. TECHNIQUE: XR CHEST 1 VIEW 06/08/2023 6:26 AM CDT FINDINGS: The heart is enlarged. Lungs are clear without consolidation, atelectasis, mass or edema. There is no pleural effusion. There is no pneumothorax. There are no acute osseous findings. IMPRESSION: Clear lungs. Electronically signed by: Keshav Vargas MD 06/08/2023 07:00 AM CDT Due to temporary technical issues with the PACS/Fluency reporting system, reports are being signed by the in house radiologist without review as a courtesy to ensure prompt reporting. The interpreting r adiologist is fully responsible for the content of the report.
--- NOTE | 2023-06-09 14:25 | EKG ---
Test Date: 2023-06-08 Test Time: 06:18:42 Senior Technical Business Analyst: RV MEASUREMENT RESULTS: Intervals: Rate: 73 RI: 164 QRSD: 88 QT: 386 QTc: 425 [place]: P: 33 RI: 164 QRS: -2 T: 18 INTERPRETIVE STATEMENTS: Normal sinus rhythm Normal ECG Compared to ECG 11/28/2020 13:31:06 Sinus bradycardia no longer present Electronically Signed On 06-09-23 14:23:49 CDT by Espinoza Lang
== END ==
LOC: ER 06:06
DX: R06.02 Shortness of breath (principal); M79.602 Pain in left arm
CPT/HCPCS: 93005; 85025; 80048; 36415; 83735; 85610; 80076; 84443; 84484; 84439; 83880; 86140; 71045; J7030; 99285

== ENCOUNTER 2024-08-05 17:39 | Emergency (ER) | payer OTHER, SELFPAY ==
[2024-08-05] MEDS ORDERED: KETOROLAC 30 MG/ML INJ ONE (20:20)
[2024-08-05] MEDS ORDERED: NA CHLORIDE 0.9% 1,000 ML ONE (20:20)
--- NOTE | 2024-08-05 20:26 | RAD REPORT ---
EXAMINATION: CT Stone Protocol CLINICAL INDICATION: Male, 38 years old. FLANK PAIN TECHNIQUE: CT abdomen and pelvis was performed, without IV contrast, as per department protocol. Axia l, sagittal and coronal reconstructions were obtained. One or more of the following dose reduction techniques were used: Automated exposure control, adjustment of the mA and kV according to the patien t size, and iterative reconstruction. Unless otherwise specified, incidental findings do not require dedicated imaging follow-up. COMPARISON: No prior exam. FINDINGS: The lack of intravenous contrast limits the sensitivity of this exam for evaluation of solid visceral organs, vascular structures, and retroperitoneum. LOWER CHEST: The visualized lung bases are clear. LIVER: Normal in size and contour. No focal lesion. BILIARY SYSTEM: No suspicious abnormalities. SPLEEN: Normal size. No focal lesion. PANCREAS: No mass, ductal dilation, or preethi-pancreatic fluid. ADRENALS: Normal; no mass. KIDNEYS AND URETERS: Normal size and contour. No hydronephrosis. 5 mm right lower renal pole nonobstr ucting calculus. URINARY BLADDER: Normal contour. GASTROINTESTINAL TRACT: No evidence of bowel obstruction, significant free fluid, free air or abscess . APPENDIX: Normal appendix. LYMPH NODES: No lymphadenopathy. MUSCULOSKELETAL: No acute or suspicious osseous abnormality. ADDITIONAL FINDINGS: None. IMPRESSION: Nonobstructing right lower pole 5 mm calculus. No other acute or concerning abnormalities in the abdomen or pelvis, with evaluation limited by lack of IV contrast.
[2024-08-05 20:53] LABS: Absolute Eosinophils 0.1 K/uL (0-0.5); Absolute Lymphocytes (CBC) 1.8 K/uL (0.7-4.9); Absolute Monocytes 0.5 K/uL (0.1-1.3); Absolute Neutrophil 2.3 K/uL (1.8-8.0); Basophils % 0.7 % (0-1.3); Hematocrit 38.3 % (39.6-49.0); Hemoglobin 13.2 g/dL (13.6-17.9); Lymphocytes % 38.6 % (15.3-44.8); MCH 30.1 pg (27.0-35.0); MCHC 34.5 g/dL (32.0-36.0); MCV 87.2 fL (80-100); MPV 7.8 fL (7.6-11.3); Monocytes % 10.4 % (3.3-12.3); Neutrophils % 47.3 % (41.7-73.7); Nucleated Red Blood Cells % 0.1 % (0-0); Platelets 204 thou/uL (152-406); RBC Red Blood Cell Count 4.39 M/uL (4.33-5.43); Red Cell Distribution Width 13.9 % (12.1-15.2)
[2024-08-05 21:06] LABS: Specific Gravity > 1.030 (1.005-1.030); Sqamous Epithelial None Seen /HPF (None Seen); Urine Bacteria None Seen /HPF (<20); Urine Bilirubin NEGATIVE (Negative); Urine Blood Negative (Negative); Urine Clarity Clear (Clear); Urine Color Yellow (Yellow); Urine Glucose NEGATIVE (Negative); Urine Ketones NEGATIVE (Negative); Urine Micro Reflex YN NO BILL MICROSCOPIC; Urine Mucus Slight /HPF (None Seen); Urine Nitrite NEGATIVE (Negative); Urine Protein NEGATIVE (Negative); Urine RBC <5 /HPF (None Seen); Urine Urobilinogen Normal (Normal); Urine WBC <5 /HPF (<5)
[2024-08-05 21:12] LABS: Albumin/Globulin Ratio 1.4 (1.1-1.8); Anion Gap 7.6 mEq/L (5.0-15.0); Bilirubin Total 1.2 mg/dL (0.2-1.0); Globulin 2.9 g/dL (2.3-3.5); Potassium 3.6 mEq/L (3.5-5.1); Protein, Total 6.9 g/dL (6.4-8.2)
--- NOTE | 2024-08-05 21:13 | EDPHYS ---
Physician Documentation [facility] Name: Juan Juarez Age: 38 yrs Sex: Male : 1985 Arrival Date: 08/05/2024 Time: 17:39 Bed 3 Private MD: ED Physician Felicita Barnett HPI: 08/05 19:37 This 38 yrs old Male presents to ER via Ambulatory with complaints of Possible Kidney jj9 Stone. 19:37 38-year-old man comes emergency department complaining of left flank pain similar to jj9 previous episodes of kidney stones. The patient denies fever, chills, nausea, vomiting pain is a 4 out of 10. The pain does not radiates to the abdomen seems to be located to the lower flank area. The patient reports history of hyperlipidemia but denies any other medical problems.. Historical: - Allergies: 18:52 No Known Allergies; cm10 - PMHx: 18:52 Kidney stone; cm10 - Immunization history:: Adult Immunizations up to date, Adult Immunizations. - Infectious Disease History:: Denies. - Social history:: Smoking status: Patient denies any tobacco usage or history of. ROS: 19:37 Constitutional: Negative for fever, chills, and weight loss, Eyes: Negative for injury, jj9 pain, redness, and discharge, ENT: Negative for injury, pain, and discharge, Neck: Negative for injury, pain, and swelling, Cardiovascular: Negative for chest pain, palpitations, and edema, Respiratory: Negative for shortness of breath, cough, wheezing, and pleuritic chest pain, Abdomen/GI: Negative for abdominal pain, nausea, vomiting, diarrhea, and constipation, Back: left flank pain MS/Extremity: Negative for injury and deformity, Skin: Negative for injury, rash, and discoloration, Neuro: Negative for headache, weakness, numbness, tingling, and seizure, Psych: Negative for depression, anxiety, suicide ideation, homicidal ideation, and hallucinations, Allergy/Immunology: Negative for hives, rash, and allergies, Endocrine: Negative for neck swelling, polydipsia, polyuria, polyphagia, and marked weight changes, Hematologic/Lymphatic: Negative for swollen nodes, abnormal bleeding, and unusual bruising, Exam: 19:40 Constitutional: This is a well developed, well nourished patient who is awake, alert, jj9 and in no acute distress. Head/Face: Normocephalic, atraumatic. Eyes: Pupils equal round and reactive to light, extra-ocular motions intact. Lids and lashes normal. Conjunctiva and sclera are non-icteric and not injected. Cornea within normal limits. Periorbital areas with no swelling, redness, or edema. ENT: Nares patent. No nasal discharge, no septal abnormalities noted. Tympanic membranes are normal and external auditory canals are clear. Oropharynx with no redness, swelling, or masses, exudates, or evidence of obstruction, uvula midline. Mucous membranes moist. Neck: Trachea midline, no thyromegaly or masses palpated, and no cervical lymphadenopathy. Supple, full range of motion without nuchal rigidity, or vertebral point tenderness. No Meningismus. Chest/axilla: Normal chest wall appearance and motion. Nontender with no deformity. No lesions are appreciated. Cardiovascular: Regular rate and rhythm with a normal S1 and S2. No gallops, murmurs, or rubs. Normal PMI, no JVD. No pulse deficits. Respiratory: Lungs have equal breath sounds bilaterally, clear to auscultation and percussion. No rales, rhonchi or wheezes noted. No increased work of breathing, no retractions or nasal flaring. Abdomen/GI: Soft, non-tender, with normal bowel sounds. No distension or tympany. No guarding or rebound. No evidence of tenderness throughout. Back: minimal tenderness to left flank area Skin: Warm, dry with normal turgor. Normal color with no rashes, no lesions, and no evidence of cellulitis. MS/ Extremity: Pulses equal, no cyanosis. Neurovascular intact. Full, normal range of motion. Neuro: Awake and alert, GCS 15, oriented to person, place, time, and situation. Cranial nerves II-XII grossly intact. Motor strength 5/5 in all extremities. Sensory grossly intact. Cerebellar exam normal. Normal gait. Psych: Awake, alert, with orientation to person, place and time. Behavior, mood, and affect are within normal limits. Vital Signs: 18:51 BP 126 / 94; Pulse 76; Resp 16; Temp 97.3(O); Pulse Ox 100% on R/A; Weight 128.82 kg; cm10 Height 6 ft. 1 in. ; Pain 4/10; 20:21 BP 127 / 94; Pulse 64; Resp 18; Pulse Ox 99% ; Weight 127.01 kg; Height 6 ft. 2 in. ; km10 21:20 BP 127 / 94; Pulse 60; Resp 16; Pulse Ox 100% on R/A; km10 20:21 Body Mass Index 35.95 (127.01 kg, 187.96 cm) km10 18:51 Pain Scale: Adult cm10 [place] Coma Score: 20:21 Eye Response: spontaneous(4). Motor Response: obeys commands(6). Verbal Response: km10 oriented(5). Total: 15. MDM: 18:45 Medical Screening Exam initiated jj9 19:40 Differential diagnosis: nephrolithiasis, pyelonephritis, UTI, diverticulitis. jj9 19:40 ED course: Patient seen and triaged to ER saturation, labs and imaging requested j Toradol for pain Case signed out to incoming physician at shift change pending labs imaging and final disposition.. 21:10 Data reviewed: vital signs, nurses notes, lab test result(s), urinalysis, radiologic gb1 studies, CT scan. ED course: 38-year-old male with flank pain there is a 5 mm renal pole stone nonobstructing calculus. His urinalysis is negative for infection. I will discharge him with instructions and return precautions. I recommend NSAIDs for pain control. He otherwise is nontoxic-appearing with stable vital signs. 08/05 18:52 Order name: CBC with Diff; Complete Time: 21:18 9 08/05 18:52 Order name: CMP; Complete Time: 21:18 9 08/05 18:52 Order name: UA W/ Microscopic; Complete Time: 21:10 9 08/05 19:18 Order name: Stone Protocol; Complete Time: 20:39 EDMS 08/05 18:52 Order name: IV Saline Lock; Complete Time: 20:32 j9 08/05 18:52 Order name: Labs collected and sent; Complete Time: 20:32 j Administered Medications: 20:32 Drug: TORadol - Ketorolac IVP 15 mg IVP once Route: IVP; Site: left antecubital; ha1 21:24 Follow up: Response: No adverse reaction; Pain is decreased 10 20:32 Drug: NS 0.9% IV 1000 ml IV at 1 bolus Per protocol; to be given as a bolus over 60 ha1 minutes Route: IV; Rate: 1 bolus; Site: left antecubital; 21:24 Follow up: Response: No adverse reaction; IV Status: Completed infusion km10 Disposition Summary: 08/05/24 21:12 Discharge Ordered Notes: Location: Home gb1 Problem: an acute exacerbation gb1 Symptoms: have improved gb1 Condition: Stable gb1 Diagnosis - Calculus of kidney gb1 Followup: gb1 - With: Shadi Sarmiento MD - When: - Reason: If symptoms return, Further diagnostic work-up Discharge Instructions: - Discharge Summary Sheet gb1 - Kidney Stones gb1 - Low-Purine Eating Plan gb1 Forms: - Medication Reconciliation Form gb1 - Antibiotic Education gb1 - Prescription Opioid Use gb1 - Patient Portal Instructions gb1 - Leadership Thank You Letter gb1 Signatures: Dispatcher [employer] Bia Allen RN RN ha1 Anita Garvey RN RN cm10 Felicita Barnett MD MD gb1 Jordan Coyne MD MD jj9 Suellen Zuniga RN RN km10 Corrections: (The following items were deleted from the chart) 19:18 18:53 Abdomen Pelvis Wo Con+CT.RAD.BRZ ordered. EDMS EDMS
--- NOTE | 2024-08-05 21:13 | ER ---
Nurse's Notes [facility] Name: Juan Juarez Age: 38 yrs Sex: Male : 1985 Arrival Date: 08/05/2024 Time: 17:39 Bed 3 Private MD: Diagnosis: Calculus of kidney Presentation: 08/05 18:51 Chief complaint: Patient states: Left sided flank pain onset today. Coronavirus screen: cm10 Client denies travel out of the [place] in the last 14 days. Ebola Screen: Patient denies travel to an Ebola-affected area in the 21 days before illness onset. Initial Sepsis Screen: Does the patient meet any 2 criteria? No. Patient's initial sepsis screen is negative. Does the patient have a suspected source of infection? No. Patient's initial sepsis screen is negative. Risk Assessment: Do you want to hurt yourself or someone else? Patient reports no desire to harm self or others. Onset of symptoms was August 05, 2024. 18:51 Method Of Arrival: Ambulatory 10 18:51 Acuity: RAF 3 cm10 Triage Assessment: 18:52 General: Appears in no apparent distress. comfortable, Behavior is calm, cooperative. cm10 Neuro: No deficits noted. Level of Consciousness is awake, alert, obeys commands, Oriented to person, place, time, situation, Appropriate for age. Respiratory: No deficits noted. Airway is patent Respiratory effort is even, unlabored, Respiratory pattern is regular, symmetrical. Historical: - Allergies: 18:52 No Known Allergies; cm10 - PMHx: 18:52 Kidney stone; cm10 - Immunization history:: Adult Immunizations up to date, Adult Immunizations. - Infectious Disease History:: Denies. - Social history:: Smoking status: Patient denies any tobacco usage or history of. Screenin:21 [facility] ED Fall Risk Assessment (Adult) History of falling in the last 3 months, km10 including since admission No falls in past 3 months (0 pts) Confusion or Disorientation No (0 pts) Intoxicated or Sedated No (0 pts) Impaired Gait No (0 pts) Mobility Assist Device Used No (0 pt) Altered Elimination No (0 pt) Score/Fall Risk Level 0 - 2 = Low Risk. Abuse screen: Denies threats or abuse. Denies injuries from another. Nutritional screening: No deficits noted. Tuberculosis screening: No symptoms or risk factors identified. Assessment: 20:19 General: Appears in no apparent distress. Behavior is calm, cooperative. Pain: km10 Complains of pain in lumbar area and left low back Pain currently is 5 out of 10 on a pain scale. Pain began 1 day ago. Neuro: Level of Consciousness is awake, alert, Oriented to person, place, time, situation, Gait is steady. GI: Abd is non tender X 4 quads Patient currently denies abdominal pain, constipation, diarrhea, nausea, pain, vomiting. : Reports pain in left flank(s), darker urine. 21:00 Reassessment: Patient appears in no apparent distress at this time. Patient and/or km10 family updated on plan of care and expected duration. Pain level reassessed. Vital Signs: 18:51 BP 126 / 94; Pulse 76; Resp 16; Temp 97.3(O); Pulse Ox 100% on R/A; Weight 128.82 kg; cm10 Height 6 ft. 1 in. ; Pain 4/10; 20:21 BP 127 / 94; Pulse 64; Resp 18; Pulse Ox 99% ; Weight 127.01 kg; Height 6 ft. 2 in. ; km10 21:20 BP 127 / 94; Pulse 60; Resp 16; Pulse Ox 100% on R/A; km10 20:21 Body Mass Index 35.95 (127.01 kg, 187.96 cm) km10 18:51 Pain Scale: Adult cm10 [place] Coma Score: 20:21 Eye Response: spontaneous(4). Motor Response: obeys commands(6). Verbal Response: km10 oriented(5). Total: 15. ED Course: 17:40 Patient arrived in ED. cj3 18:45 Jordan Coyne MD is Attending Physician. jj9 18:52 Triage completed. cm10 18:52 Arm band placed on right wrist. Patient placed in waiting room, Patient notified of cm10 wait time. 19:49 Stone Protocol In Process Unspecified. EDMS 20:04 Attending Physician role handed off by Jordan Coyne MD gb1 20:04 Felicita Barnett MD is Attending Physician. gb1 20:15 Suellen Zuniga, NATANAEL is Primary Nurse. km10 20:25 Inserted saline lock: 20 gauge in left antecubital area, using aseptic technique. Blood ha1 collected. Flushed with 10 mL NS. 20:32 CBC with Diff Sent. ha1 20:32 CMP Sent. ha1 21:00 Patient has correct armband on for positive identification. Call light in reach. Side km10 rails up X2. Adult w/ patient. Provided Education on: plan of care. 21:00 Client placed on continuous cardiac and pulse oximetry monitoring. NIBP monitoring km10 applied. 21:00 UA W/ Microscopic Sent. kmf 21:11 Shadi Sarmiento MD is Referral Physician. gb1 21:21 Assisted provider with: plan of care. IV discontinued, intact, bleeding controlled, No km10 redness/swelling at site. Pressure dressing applied. Administered Medications: 20:32 Drug: TORadol - Ketorolac IVP 15 mg IVP once Route: IVP; Site: left antecubital; ha1 21:24 Follow up: Response: No adverse reaction; Pain is decreased km10 20:32 Drug: NS 0.9% IV 1000 ml IV at 1 bolus Per protocol; to be given as a bolus over 60 ha1 minutes Route: IV; Rate: 1 bolus; Site: left antecubital; 21:24 Follow up: Response: No adverse reaction; IV Status: Completed infusion km10 Medication: 21:23 VIS not applicable for this client. km10 Outcome: 21:12 Discharge ordered by . gb1 21:22 Discharged to home ambulatory, km10 21:22 Condition: stable 21:22 Discharge instructions given to patient, Instructed on discharge instructions, follow up and referral plans. Demonstrated understanding of instructions, follow-up care, 21:24 Patient left the ED. km10 Signatures: Dispatcher [employer] EDMS Bia Chang RN RN ha1 Anita Garvey RN RN cm10 Felicita Barnett MD MD gb1 Alysa Angel kmf Karla Hickey3 Jordan Coyne MD MD jj9 Suellen Zuniga RN RN km10
[2024-08-05 21:39] VITALS: TEMP 97.3
[2024-08-05 21:41] VITALS: BP 127/94
[2024-08-05 21:42] VITALS: O2SAT 100
== END 2024-08-05 21:24 | disposition home or self-care (01) ==
LOC: ER 17:39
DX: N20.0 Calculus of kidney (principal); Z87.442 Personal history of urinary calculi
CPT/HCPCS: 36415; 74176; 76377; 80053; 81001; 85025; 96361; 96374; 99284; J7030